=== PATIENT | male | born 1995 | race Caucasian/White ===

== ENCOUNTER → 2022-01-31 | Emergency (ER) | payer MEDICAID ==
[~2022-01-31] VITALS: Ht 177.8 cm; Wt 70.8 kg
[~2022-01-31] MED LIST: LIDOCAINE/EPI 1% 1:100000 20 ML VIAL INJ ONE
[2022-01-31 17:06] VITALS: BP_SYST 107
== END | disposition home or self-care (01) ==
LOC: SED 16:47
DX: S61.315A Laceration without foreign body of left ring finger with damage to nail, initial encounter (principal); Z79.899 Other long term (current) drug therapy; X58.XXXA Exposure to other specified factors, initial encounter; Y93.89 Activity, other specified; Y92.89 Other specified places as the place of occurrence of the external cause; Y99.8 Other external cause status
CPT/HCPCS: 99282